=== PATIENT | male | born 1985 | race Caucasian/White ===

== ENCOUNTER 2018-08-20 11:59 | Inpatient (IN) ==
[2018-08-20] MEDS ORDERED: *HR* LORazepam 2 MG/ML VIAL IM PRN (12:41)
[2018-08-20] MEDS ORDERED: *HR* LORazepam 1 MG TABLET PO PRN (12:41)
[2018-08-20] MEDS ORDERED: Mag Hydrox/Al Hydrox/Simeth 30 ML UDC PO PRN (12:41)
[2018-08-20] MEDS ORDERED: hydrOXYzine pamoate 25 MG CAPSULE PO PRN (12:41)
[2018-08-20] MEDS ORDERED: MOM Conc 10 ML UD.LIQ PO PRN (12:41)
[2018-08-20] MEDS ORDERED: traZODone 50 MG TABLET PO PRN (12:41)
[2018-08-20] MEDS ORDERED: Ibuprofen 400 MG TABLET PO PRN (12:41)
[2018-08-20] MEDS ORDERED: Haloperidol Lactate 5 MG/ML VIAL IM PRN (12:41)
[2018-08-20] MEDS: levETIRAcetam 250 MG TABLET PO SCH (20:10)
[2018-08-21] MEDS: levETIRAcetam 250 MG TABLET PO SCH ×2 (08:45→21:40)
--- NOTE | 2018-08-21 11:17 | Psychiatry History & Physical ---
Date of Encounter: 08/21/18 Time of Encounter: 11:00 History of Present Illness Patient Stated Chief Complaint: I had thoughts to overdose Medicare Admission Attestation: For traditional Medicare patients the provided hospital inpatient services are reasonable and necessary and in the case of services not specified as inpatient-only under 42 CFR 419.22 (n), that they are appropriately provided as inpatient services in accordance 42 CFR 412.3. For Critical Access Hospital the patient may reasonably be expected to be discharged or transferred to a hospital within 96 hours after admission to the Critical Access Hospital. Admitted From: Emergency Dept Plans for Post Hospital Care: Home History of Present Illness: Pt is a 33 yo ,, male, x2 , x1, with 2 children ( and 2 yo), who presents for depression and anxiety . Pt noted he currently lives in [place], [place]. Pt noted recent exacerbation of depression. Pt states when I came in I thought I wanted to hurt myself via overdose. Pt noted I came in because I needed some help I feel much better now. I feel safe and comfortable on the unit. Pt denied any side effects to current medications. Pt was in agreement with current treatment plan. Pt noted that he is doing alright today. Pt noted he slept 10 hours last night. Pt noted his appetite is good. Pt rated his depression a 0, on a scale of zero to ten with ten being the worst and zero being none. Pt rate his anxiety a 0, on the same scale. Pt denied any auditory or visual hallucinations. Pt denied any current thoughts to harm himself or anyone else. Pt noted that his mother and father are alive and live in [place]. Pt noted that his highest level of education is 11th. 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 Pt noted multiple inpt psychiatric hospitalizations. Pt denied any previous suicide attempts, however noted self harm via cutting. Pt denied any family hx of suicides. PT denied any family mental health hx. Pt noted hx of seizure (currently on Keppra, last seizure 2 weeks ago) Pt denied HEP C, TBIs or HIV. No TD noted, AIMS=0 Tobacco: [address]: Denies Alcohol: denies caffiene: a few cups per day. Assessment/Plan 1.Interval hx 2.Continue current medications 3.Review current labs 4.Pt had an opportunity to ask questions and discuss current treatment plan. 5.Supportive therapy was provided 6.Pt encouraged to consider group or individual therapy 7.Pt was in agreement with treatment plan. 8.Pt was educated on the risks benefits and side effects of current medications. Past Med Surg Social Fam HX - Past Medical History Medical history: seizures - Past Psychiatric History Psychiatric history: Reports: depression, previous psychiatric hospitalization Family psychiatric history: Yes - Past Surgical History Surgical History: splenectomy - Social History Smoking Status: Current every day smoker Smokeless Tobacco Status: No Alcohol use: none Drug use: none Medications & Allergies LevETIRAcetam [Keppra] 1,000 mg PO BID 08/20/18 [History] Allergy/AdvReac Type Severity Reaction Status Date / Time lamotrigine [From Lamictal] Allergy Difficulty Verified 08/20/18 12:39 Breathing Review of Systems Constitutional: Denies: fever, chills, weakness, weight change Eyes: Denies: eye pain, vision change Ears, Nose, Throat: Denies: ear pain, throat pain, dental pain, hearing loss, congestion Cardiovascular: Denies: chest pain, palpitations, dyspnea on exertion Respiratory: Denies: cough, dyspnea, wheezes Gastrointestinal: Denies: abdominal pain, nausea, vomiting, diarrhea, constipation Genitourinary male: Denies: urgency, dysuria, frequency, genital lesions Musculoskeletal: Denies: joint swelling, joint pain Integumentary: Denies: rash, lesions, pruritus Neurological: Denies: headache, weakness, numbness, memory loss Psychiatric: Reports: depression, suicidal ideation Endocrine: Denies: fatigue, heat or cold intolerance Hematologic/Lymphatic: Denies: easy bruising, lymphadenopathy Allergic/Immunologic: Denies: urticaria, itchy eyes Exam - HEENT Head exam IM: Present: atraumatic Eye exam IM: Present: EOMI, normal appearance, PERRL ENT exam IM: Present: normal exam - Neurological Neurological exam: Present: CN II-XII intact - Respiratory Respiratory exam IM: Present: CTAB - GI/Abdominal GI/Abdominal exam IM: Present: normal bowel sounds, soft. Absent: tenderness - Extremities Extremities exam IM: Present: full ROM - Skin Skin exam IM: Present: dry, warm - Constitutional Vitals: Temp Pulse Resp BP Pulse Ox 98.6 F 72 18 121/79 97 08/21/18 08:54 08/21/18 08:54 08/21/18 08:54 08/21/18 08:54 08/21/18 08:54 General appearance: age & developmentally appropriate, well-groomed, well- nourished - Musculoskeletal Gait: normal Station: relaxed Strength & Tone: normal for patient - Psychiatric Patient Orientation: Yes Person, Yes Time, Yes Place Level of alertness: Alert Behavior: calm, cooperative Psychomotor activity: Normal Eye Contact: Maintains Eye Contact Mood Description: Euthymic/stable Affect description: congruent with mood, full range Speech Volume: Normal Speech pattern: normal rate, normal rhythm, normal tone, fluent, spontaneous Language & Vocabulary: consistent with education Thought Process: Linear, Goal Oriented Thought Content: No Suicidal ideation, No Homicidal ideation, No Overt delusions Perceptual Disturbances: No Auditory hallucinations, No Visual hallucinations Attention Span Ability: Capable of Focused Attention Memory Description: Grossly Intact Patient Reliability: Reliable Historian Fund of knowledge: Yes abstraction ability, Yes average, Yes aware of current events Intelligence Estimate: Average Judgment: Limited Insight: Partial Assessment and Plan (1) Depression Current visit: Yes Status: Acute Plan: Admit inpatient for safety and stabilization, Close observation, Suicide Precautions per unit protocol, Encourage participation in unit milieu, Group Therapy, Monitor sleep, Monitor appetite Risks, benefits, side effects, alternatives discussed w/pt: Yes Patient agreeable to treatment: Yes Plans for Post Hospital Care: at Home Qualifiers: Depression Type: reactive depression Qualified Code(s): F32.9 - Major depressive disorder, single episode, unspecified (2) Suicidal ideation Current visit: Yes Status: Acute Plan: Admit inpatient for safety and stabilization, Close observation, Suicide Precautions per unit protocol, Encourage participation in unit milieu, Group Therapy, Monitor sleep, Monitor appetite Risks, benefits, side effects, alternatives discussed w/pt: Yes Patient agreeable to treatment: Yes Plans for Post Hospital Care: at Home
[2018-08-21] MEDS: Nicotine 14 MG PATCH.TD24 TD SCH (16:09)
[2018-08-22] MEDS: levETIRAcetam 250 MG TABLET PO SCH (08:51)
[2018-08-22] MEDS: Nicotine 14 MG PATCH.TD24 TD SCH (08:58)
[2018-08-22 09:40] VITALS: BP 119/85
--- NOTE | 2018-08-22 09:55 | Discharge Summary ---
Date of Encounter: 08/22/18 Time of Encounter: 09:00 Diagnosis - Discharge Diagnosis (1) Depression Status: Acute Qualifiers: Depression Type: reactive depression Qualified Code(s): F32.9 - Major dep ressive disorder, single episode, unspecified (2) Suicidal ideation Status: Acute Medications - Discharge Medications Prescriptions: LevETIRAcetam [Keppra] 1,000 mg PO BID 30 Days #60 tablet Sertraline [Zoloft] 25 mg PO DAILY 30 Days #30 tablet LevETIRAcetam [Keppra] 1,000 mg PO BID 30 Days #60 tablet 08/22/18 [Rx] Sertraline [Zoloft] 25 mg PO DAILY 30 Days #30 tablet 08/22/18 [Rx] Allergy/AdvReac Type Severity Reaction Status Date / Time lamotrigine [From Lamictal] Allergy Difficulty Verified 08/20/18 12:39 Breathing Provider Date of admission: 08/20/18 12:00 Primary care physician: PCP NONE Discharging clinician: Ethan Larson Psychiatry Exam - Constitutional Vitals: Temp Pulse Resp BP Pulse Ox 98.7 F 67 97 119/85 97 08/22/18 09:00 08/22/18 09:00 08/22/18 09:00 08/22/18 09:00 08/22/18 08:30 General appearance: age & developmentally appropriate, well-groomed, well- nourished - Musculoskeletal Gait: normal Station: relaxed Strength & Tone: normal for patient - Psychiatric Patient Orientation: Yes Person, Yes Time, Yes Place Level of alertness: Alert Behavior: calm, cooperative Psychomotor activity: Normal Eye Contact: Maintains Eye Contact Mood Description: Euthymic/stable Affect description: congruent with mood, full range Speech Volume: Normal Speech pattern: normal rate, normal rhythm, normal tone, fluent, spontaneous Language & Vocabulary: consistent with education Thought Process: Linear, Goal Oriented Thought Content: No Suicidal ideation, No Homicidal ideation, No Overt delusions Perceptual Disturbances: No Auditory hallucinations, No Visual hallucinations Attention Span Ability: Capable of Focused Attention Memory Description: Grossly Intact Patient Reliability: Reliable Historian Fund of knowledge: Yes abstraction ability, Yes aware of current events Intelligence Estimate: Average Judgment: Limited Insight: Partial Hospital Course Hospital course: Pt is a 33 yo ,, male, x2 , x1, with 2 children ( and 2 yo), who presents for depression and anxiety . Pt noted he currently lives in [place], [place]. Pt noted recent exacerbation of depression. Pt continues to note I came in because I needed some help I feel much better now. I feel safe and comfortable on the unit and for discharge home. Pt denied any side effects to current medications. Pt was in agr eement with current treatment plan. Pt noted that he is doing alright today. Pt noted he slept 10 hours last night. Pt noted his appetite is good. Pt rated his depression a 0, on a scale of zero to ten with ten being the worst and zero being none. Pt rate his anxiety a 0, on the same scale. Pt denied any auditory or visual hallucinations. Pt denied any current thoughts to harm himself or anyone else. Patient noted a significant reeducation in his depression and anxiety during his stay at [place]. Pt noted that he slowly improved to the point that he was comfortable and safe to D/C home. Pt noted he felt his medications were working well and denied any current side effects. Treatment team encouraged Pt to stay out of bed and try to find activities to do, verbalized understanding. pt reported that he felt safe on the unit and comfortable for Home with his family. Pt Denied suicidal/homicidal ideations, denied any problems or concerns with med ications or side effects. PT voiced progression towards treatment goals and was offered a copy of updated treatment plan completed during visit today. Denied any immediate needs or concerns. Pt denied any access to guns or weapons. Pt throughout his stay on [facility] psych pt felt like his medications were working and felt comfortable being discharged on these medications. Pt was advised to take all medications as prescribed, follow up with all scheduled appointments and abstain from any alcohol or illicit substances. Pt was in agreement. Pt felt safe and comfortable to be discharged to his home and follow up with out mental health. Pt was very optimistic about his D/C. Pt felt safe and comfortable for D/C. The patient was educated primarily by verbal means about his diagnoses and their manifestations in his life. The option for treatment including group individual therapy programming was offered to his and the use of medications with all their potential risks, benefits, and side-effects were discussed with the pt at length. Pt was given the opportunity to ask questions and he participated in the treatment and planning process. Pt felt ready and eager to be discharged from the from the [facility] unit to be discharged home. Pt felt he was safe for this disposition. Pt was considered to be able to participate in informed consent and decision-making with respect to medical, legal and financial issues at the time of his discharge from the [facility]. Pt denied TBI, Seizures, HEP C or HIV. No TD noted, AIMS=0 Assessment/Plan 1. Interval hx 2. Continue current medications 3. Review current labs 4. Pt had an opportunity to ask questions and discuss current treatment plan. 5. Supportive therapy was provided 6. Pt encouraged to consider group or individual therapy 7. Pt was in agreement with treatment plan. 8. Pt was educated on the risks benefits and side effects of current medications. 9. abstain from any alcohol or illict substances. 10. follow up with all sheduled appointments. 11. D/C Pt home Time spent discussing smoking cessation with patient: 3 to 10 minutes Does patient wish to continue nicotine replacement upon disc: No - Time Spent with Patient Total time spent providing and/or coordinating discharge services: Greater than 30 minutes Assessment and Plan - Patient/Caregiver Discharge Instructions Activity: resume usual activities as tolerated Diet: regular diet - Follow up Plan Follow up with: [facility] [Outside] - 09/25/18 3:40 pm (The above appointment is with Rossana Farley for outpatient psychiatric assessment and medication management services. Please arrive 30 minutes early to complete paperwork. Please bring your photo ID, insurance card and medication list. The above appointment(s) reflects first availability. You may contact the office regularly to check for cancellations that may allow you to be seen sooner. Additionally, the new case reviewer assigned to you will contact you directly to schedule your intake appointment for case management and mental health counseling services. ) Overall status at discharge: Stable Disposition: Home, Self-Care Quality - Multiple Antipsychotics Patient discharged on 2 or more antipsychotic medications: No - Justification Documentation of: Other justification (pt not on antipsychotic medications) Procedures - Procedures Procedures: Medication Management, Crisis Stabilization, Supportive Therapy, Group Therapy, Psychoeducational Therapy
== END 2018-08-22 12:26 | disposition home or self-care (01) | DRG 754 ==
LOC: 1ANU 12:00
PROVIDERS: ADMIT General Practice; ATTEND General Practice

== ENCOUNTER 2019-07-23 02:42 | Observation (INO) ==
[2019-07-23 03:12] LABS: Basophils # 0.1 K/mcL (0.0-0.2); Basophils % 0.6 %; Eosinophils # 0.5 K/mcL (0.0-0.6); Eosinophils % 2.9 %; Hemoglobin 14.2 g/dL (12.9-16.9); Immature Granulocytes % 0.6 % (0-4); Lymphocytes # 7.2 K/mcL (0.6-4.6); Lymphocytes % 44.7 %; Mean Corpuscular Hemoglobin 28.2 pg (28.0-33.3); Mean Corpuscular Volume 85.3 fL (83.0-100.0); Mean Platelet Volume 10.7 fL (9.4-12.4); Monocytes # 1.9 K/mcL (0.0-1.3); Monocytes % 11.6 %; Neutrophils # 6.4 K/mcL (1.6-8.9); Platelet Count 301 K/mcL (140-400); Red Blood Count 5.04 M/mcL (4.19-5.50); Red Cell Distribution Width 14.6 % (11.5-14.5); Segmented Neutrophils % 39.6 %; White Blood Count 16.1 K/mcL (4.3-11.1)
[2019-07-23 03:14] LABS: Bilirubin,Urine Negative (Negative); Blood,Urine Negative (Negative); Clarity,Urine Clear (Clear); Color,Urine Yellow (Yellow); Glucose,Urine (UA) Normal (Normal); Ketones,Urine Trace mg/dL (Negative); Leukocyte Esterase,Urine Small (Negative); Nitrite,Urine Negative (Negative); PH,Urine 6.5 pH Units (5.0-8.0); Protein,Urine Negative (Neg-Trace); Specific Gravity,Urine 1.021 (1.010-1.025); Urobilinogen,Urine Normal (Normal)
[2019-07-23 03:16] LABS: Bacteria,Urine None Seen per hpf (None-Few); Hyaline Casts,Urine None Seen per lpf (None-Few); RBC,Urine 0-3 per hpf (0-3); Squamous Epithelial Cell,Urine Moderate per lpf (None-Few)
[2019-07-23 03:21] LABS: Amphetamine Screen,Urine Negative ng/mL (Cutoff=1000); Barbiturate Screen,Urine Negative ng/mL (Cutoff=200); Benzodiazepines Screen,Urine Negative ng/mL (Cutoff=200); Cannabinoid Screen,Urine Negative ng/mL (Cutoff = 50); Cocaine Screen,Urine Negative ng/mL (Cutoff= 300); Opiate Screen,Urine Negative ng/mL (Cutoff=300); Phencyclidine Screen,Urine Negative ng/mL (Cutoff=25)
[2019-07-23 03:32] LABS: Acetaminophen < 10 mcg/mL (10-20); BUN/Creatinine Ratio 12 (6-26); Blood Urea Nitrogen 12 mg/dL (6-20); Calcium 9.9 mg/dL (8.6-10.3); Carbon Dioxide 25 mEq/L (23-29); Chloride 105 mEq/L (98-107); Ethanol < 10 mg/dL (Less than 10); Glucose 151 mg/dL (70-105); Osmolality,Calculated 283 (280-300); Potassium 3.6 mEq/L (3.5-5.1); Salicylate < 2.5 mg/dL (15.0-30.0); Sodium 135 mEq/L (136-145); eGFR For African Americans > 60 (> 60); eGFR For Non-African Americans > 60 (> 60)
[2019-07-23] MEDS ORDERED: *HR* LORazepam 2 MG/ML VIAL IM PRN (05:07)
[2019-07-23] MEDS ORDERED: MOM Conc 10 ML UD.LIQ PO PRN (05:07)
[2019-07-23] MEDS ORDERED: traZODone 50 MG TABLET PO PRN (05:07)
[2019-07-23] MEDS ORDERED: Mag Hydrox/Al Hydrox/Simeth 30 ML UDC PO PRN (05:07)
[2019-07-23] MEDS ORDERED: Haloperidol Lactate 5 MG/ML VIAL IM PRN (05:07)
[2019-07-23] MEDS ORDERED: hydrOXYzine pamoate 25 MG CAPSULE PO PRN (05:07)
[2019-07-23] MEDS ORDERED: *HR* LORazepam 1 MG TABLET PO PRN (05:07)
[2019-07-23] MEDS ORDERED: Acetaminophen 325 MG TABLET PO PRN (05:07)
[2019-07-23 09:54] VITALS: BP 113/77
== END 2019-07-23 14:10 | disposition home or self-care (01) ==
LOC: EMEROOARM 02:42 → INTOOBSV 04:30 → 1ANU 04:30
PROVIDERS: ADMIT Psychiatry & Neurology Psychiatry; ATTEND Psychiatry & Neurology Psychiatry

== ENCOUNTER 2020-08-20 21:30 | Inpatient (IN) ==
[2020-08-20 22:05] LABS: Bilirubin,Urine Negative (Negative); Blood,Urine Negative (Negative); Clarity,Urine Clear (Clear); Color,Urine Light-Yellow (Yellow); Glucose,Urine (UA) Normal (Normal); Ketones,Urine Negative (Negative); Leukocyte Esterase,Urine Negative (Negative); Nitrite,Urine Negative (Negative); PH,Urine 6.5 pH Units (5.0-8.0); Protein,Urine Negative (Neg-Trace); Specific Gravity,Urine 1.019 (1.010-1.025); Urobilinogen,Urine Normal (Normal)
[2020-08-20 22:05] LABS: Hematocrit 47.4 % (37.5-50.1); Hemoglobin 15.6 g/dL (12.9-16.9); Mean Corpuscular HGB Conc 32.9 g/dL (31.6-35.5); Mean Corpuscular Hemoglobin 27.4 pg (28.0-33.3); Mean Corpuscular Volume 83.2 fL (83.0-100.0); Platelet Count 357 K/mcL (140-400); Red Cell Distribution Width 14.6 % (11.5-14.5); White Blood Count 16.8 K/mcL (4.3-11.1)
[2020-08-20 22:28] LABS: Acetaminophen < 10 mcg/mL (10-20); BUN/Creatinine Ratio 9 (6-26); Blood Urea Nitrogen 8 mg/dL (6-20); Carbon Dioxide 26 mEq/L (23-29); Chloride 104 mEq/L (98-107); Chol/HDL Ratio 5.8 (0-4.9); Cholesterol 186 mg/dL (< 200); Ethanol < 10 mg/dL (Less than 10); Glucose 109 mg/dL (70-105); HDL Cholesterol 32 mg/dL (40-59); LDL Cholesterol,Calculated 102 mg/dL (< 100); Osmolality,Calculated 287 (280-300); Potassium 3.6 mEq/L (3.5-5.1); Salicylate < 2.5 mg/dL (15.0-30.0); Sodium 139 mEq/L (136-145); Triglycerides 258 mg/dL (< 150); eGFR For African Americans > 60 (> 60); eGFR For Non-African Americans > 60 (> 60)
[2020-08-20 22:29] LABS: Eosinophils # 0.3 K/mcL (0.0-0.6); Lymphocytes # 7.7 K/mcL (0.6-4.6); Monocytes # 1.7 K/mcL (0.0-1.3); Neutrophils # 7.1 K/mcL (1.6-8.9); Reactive Lymphocytes Present (Not Present)
[2020-08-20 22:30] LABS: Platelet Estimate Normal (Normal)
[2020-08-20 22:34] LABS: Estimated Average Glucose 151 mg/dl
[2020-08-20 23:23] LABS: Amphetamine Screen,Urine Negative ng/mL (Cutoff=1000); Barbiturate Screen,Urine Negative ng/mL (Cutoff=200); Benzodiazepines Screen,Urine Negative ng/mL (Cutoff=200); Cannabinoid Screen,Urine Negative ng/mL (Cutoff = 50); Cocaine Screen,Urine Negative ng/mL (Cutoff= 300); Opiate Screen,Urine Negative ng/mL (Cutoff=300); Phencyclidine Screen,Urine Negative ng/mL (Cutoff=25)
[2020-08-21] MEDS ORDERED: Ibuprofen 400 MG TABLET PO PRN (00:10)
[2020-08-21] MEDS ORDERED: Haloperidol Lactate 5 MG/ML VIAL IM PRN (00:10)
[2020-08-21] MEDS ORDERED: *HR* LORazepam 2 MG/ML VIAL IM PRN (00:10)
[2020-08-21] MEDS ORDERED: haloperidoL 5 MG TABLET PO PRN (00:10)
[2020-08-21] MEDS ORDERED: traZODone 50 MG TABLET PO PRN (00:10)
[2020-08-21] MEDS ORDERED: hydrOXYzine pamoate 25 MG CAPSULE PO PRN (00:10)
[2020-08-21] MEDS ORDERED: MOM Conc 10 ML UD.LIQ PO PRN (00:10)
[2020-08-21] MEDS ORDERED: *HR* LORazepam 1 MG TABLET PO PRN (00:10)
[2020-08-21] MEDS ORDERED: Mag Hydrox/Al Hydrox/Simeth 30 ML UDC PO PRN (00:10)
[2020-08-21] MEDS ORDERED: clonazePAM 0.5 MG TABLET PO PRN (10:31)
[2020-08-21] MEDS: Lurasidone 20 MG TABLET PO SCH (11:26)
[2020-08-21] MEDS: *HR* Metformin 500 MG TABLET PO SCH (16:04)
[2020-08-21] MEDS: Gabapentin 300 MG CAPSULE PO SCH ×2 (16:04→20:22)
[2020-08-21] MEDS: levETIRAcetam 250 MG TABLET PO SCH (17:54)
[2020-08-22] MEDS: levETIRAcetam 250 MG TABLET PO SCH (06:47)
[2020-08-22] MEDS: Lurasidone 20 MG TABLET PO SCH (08:29)
[2020-08-22] MEDS: *HR* Metformin 500 MG TABLET PO SCH (08:30)
[2020-08-22] MEDS: Gabapentin 300 MG CAPSULE PO SCH (08:30)
[2020-08-22 08:33] VITALS: BP 139/64
[2020-08-22] MEDS ORDERED: FLU Vac QV 20-21 (6Month+)/PF 0.5 ML SYRINGE IM ONE (09:52)
== END 2020-08-22 10:25 | disposition home or self-care (01) | DRG 753 ==
LOC: EMEROOARM 21:30 → 1ANU 08-21 00:07
PROVIDERS: ADMIT Psychiatry & Neurology Psychiatry; ATTEND Psychiatry & Neurology Psychiatry